=== PATIENT | male | born 1985 | race Hispanic/Latino ===

== ENCOUNTER 2024-04-10 16:20 | Emergency (ER) | payer BC, OTHER ==
[~2024-04-10] VITALS: Ht 167.6 cm; Wt 77.1 kg
[2024-04-10] MEDS: CYCLOBENZAPRINE HCL 10 MG TABLET PO ONE (17:38)
[2024-04-10] MEDS: ibuPROFEN 800 MG TAB PO ONE (17:38)
[2024-04-10] MEDS ORDERED: CYCL10TA16 PO (18:55)
[2024-04-10] MEDS ORDERED: IBUP-2070 PO (18:55)
[2024-04-10 19:13] VITALS: BP 139/80; PULSE 70; RESP 16; TEMP 98; O2SAT 98
== END 2024-04-10 19:27 | disposition home or self-care (01) ==
LOC: EDH 16:20
DX: S46.001A Unspecified injury of muscle(s) and tendon(s) of the rotator cuff of right shoulder, initial encounter (principal); Z79.899 Other long term (current) drug therapy; W20.8XXA Other cause of strike by thrown, projected or falling object, initial encounter; Y93.89 Activity, other specified; Y92.89 Other specified places as the place of occurrence of the external cause; Y99.8 Other external cause status
CPT/HCPCS: 73030